=== PATIENT | male | born 1965 | race Two or more races ===

== ENCOUNTER 2024-08-02 13:21 | Emergency (ER) | payer OTHER ==
[~2024-08-02] VITALS: Ht 182.9 cm; Wt 93.4 kg
[2024-08-02] MEDS ORDERED: TAMS-3 PO (13:45)
[2024-08-02] MEDS ORDERED: FINA5TAB11 PO (13:45)
[2024-08-02 14:10] LABS: *BILIRUBIN,URIN NEGATIVE (NEGATIVE); *BLOOD, URINE NEGATIVE (NEGATIVE); *CLARITY,URINE CLEAR (CLEAR); *COLOR,URINE YELLOW (YELLOW); *KETONES,URINE NEGATIVE (NEGATIVE); *PROTEIN,URINE NEGATIVE (NEGATIVE); *UROBILINOGEN,URINE 0.2 E.U./dl (NORMAL); LEUKOCYTE ESTERASE ,URINE NEGATIVE (NEGATIVE); NITRITE, URINE NEGATIVE (NEGATIVE); PH,URINE 6.5 (5.0-8.0); UGLUCOSE NEGATIVE (NEGATIVE)
[2024-08-02 14:13] LABS: BASOPHILS % (AUTO) 0.6 % (0.0-2.0); EOSINOPHILS # (AUTO) 0.1 K/uL (0.0-0.7); EOSINOPHILS % (AUTO) 1.7 % (0.0-7.0); HEMATOCRIT 42.4 % (36.7-47.1); HEMOGLOBIN 14.3 g/dL (12.5-16.3); LYMPHOCYTES # (AUTO) 1.6 K/uL (0.8-4.8); LYMPHOCYTES % (AUTO) 33.8 % (20.5-51.5); MEAN CORPUSCULAR HEMOGLOBIN 31.4 uug (23.8-33.4); MEAN CORPUSCULAR HGB CONC 34 g/dL (32.5-36.3); MEAN CORPUSCULAR VOLUME 92.8 fL (73.0-96.2); MONOCYTES # (AUTO) 0.2 K/uL (0.1-1.30); MONOCYTES % (AUTO) 5.1 % (0.0-11.0); NEUTROPHILS # (AUTO) 2.7 K/uL (1.8-8.9); NEUTROPHILS % (AUTO) 58.8 % (38.5-71.5); PLATELET COUNT (AUTO) 189 K/uL (152-348); RED BLOOD CELL COUNT(AUTO) 4.57 MIL/uL (4.06-5.63); RED CELL DISTRIBUTION WIDTH 14.2 % (12.1-16.2); WHITE BLOOD COUNT (AUTO) 4.7 K/uL (3.6-10.2)
[2024-08-02 14:18] LABS: DIFFERENTIAL COMMENT 1
[2024-08-02 14:22] LABS: CALCIUM 9.4 mg/dL (8.5-10.1); CREATININE 0.9 mg/dL (0.6-1.3); POTASSIUM 4.6 mmol/L (3.5-5.1)
[2024-08-02 16:21] VITALS: BP 128/78; O2SAT 98
== END 2024-08-02 16:22 | disposition home or self-care (01) ==
LOC: ER 13:21
DX: N40.0 Benign prostatic hyperplasia without lower urinary tract symptoms (principal); R35.0 Frequency of micturition; Z79.899 Other long term (current) drug therapy
CPT/HCPCS: 36415; 85025; A4606; A4663

== ENCOUNTER 2024-10-31 22:13 | Emergency (ER) | payer MEDICAID ==
[~2024-10-31] VITALS: Ht 182.9 cm; Wt 95.3 kg
[2024-10-31 22:13] VITALS: O2SAT 97
[~2024-10-31 22:13] MED LIST: FINA5TAB11 PO; TAMS-3 PO
[2024-10-31 22:40] LABS: *BILIRUBIN,URIN NEGATIVE (NEGATIVE); *BLOOD, URINE NEGATIVE (NEGATIVE); *CLARITY,URINE CLEAR (CLEAR); *COLOR,URINE YELLOW (YELLOW); *KETONES,URINE NEGATIVE (NEGATIVE); *PROTEIN,URINE NEGATIVE (NEGATIVE); LEUKOCYTE ESTERASE ,URINE NEGATIVE (NEGATIVE); NITRITE, URINE NEGATIVE (NEGATIVE); PH,URINE 7.5 (5.0-8.0); UGLUCOSE NEGATIVE (NEGATIVE)
[2024-10-31 23:00] LABS: BACTERIA,URINE FEW /HPF (NONE SEEN); MUCUS,URINE FEW /LPF (0-FEW); RBC,URINE 0-3 /HPF (0-3); SQUAMOUS EPITHELIAL CELL,UR FEW /HPF (NONE SEEN); URIC ACID CRYSTALS,URINE FEW /HPF (NONE SEEN); WBC,URINE NONE SEEN /HPF (0-3); YEAST,URINE FEW /HPF (NONE SEEN)
[2024-11-01] MEDS ORDERED: LEVO500T90 PO (11:12)
[2024-11-01] MEDS ORDERED: PHEN-705 PO (11:12)
== END 2024-11-01 02:00 | disposition left against medical advice (07) ==
LOC: ER 22:13
DX: N39.0 Urinary tract infection, site not specified (principal); Z53.21 Procedure and treatment not carried out due to patient leaving prior to being seen by health care provider
CPT/HCPCS: A4606; A4663

== ENCOUNTER 2024-11-01 09:35 | Emergency (ER) | payer MEDICAID ==
[~2024-11-01] VITALS: Ht 177.8 cm; Wt 82.6 kg
[2024-11-01 10:20] LABS: *BILIRUBIN,URIN NEGATIVE (NEGATIVE); *BLOOD, URINE NEGATIVE (NEGATIVE); *CLARITY,URINE CLEAR (CLEAR); *COLOR,URINE YELLOW (YELLOW); *KETONES,URINE NEGATIVE (NEGATIVE); *PROTEIN,URINE NEGATIVE (NEGATIVE); *UROBILINOGEN,URINE 0.2 E.U./dl (NORMAL); LEUKOCYTE ESTERASE ,URINE NEGATIVE (NEGATIVE); NITRITE, URINE NEGATIVE (NEGATIVE); UGLUCOSE NEGATIVE (NEGATIVE)
[2024-11-01] MEDS ORDERED: PHEN-705 PO (11:12)
[2024-11-01] MEDS ORDERED: LEVO500T90 PO (11:12)
[2024-11-01] MEDS ORDERED: DEXAMETHASONE SOD PHOSPHATE 4 MG INJ ONE (11:16)
[2024-11-01] MEDS ORDERED: levoFLOXacin 500 MG TABLET ONE (11:16)
[2024-11-01] MEDS: DEXAMETHASONE SOD PHOSPHATE 4 MG INJ IM ONE (11:22)
[2024-11-01] MEDS: levoFLOXacin 500 MG TABLET PO ONE (11:23)
[2024-11-01 11:30] VITALS: BP 135/75; O2SAT 99
== END 2024-11-01 11:31 | disposition home or self-care (01) ==
LOC: ER 09:35
DX: R35.0 Frequency of micturition (principal); N41.0 Acute prostatitis; N40.1 Benign prostatic hyperplasia with lower urinary tract symptoms; Z79.899 Other long term (current) drug therapy
CPT/HCPCS: 99283; 81003; 96372; J1100; A4606; A4663

== ENCOUNTER 2025-01-10 13:49 | Emergency (ER) | payer MEDICAID ==
[~2025-01-10] VITALS: Ht 182.9 cm; Wt 95.3 kg
[~2025-01-10 13:49] MED LIST changes: +LEVO500T90 PO; +PHEN-705 PO
[2025-01-10 19:33] LABS: BASOPHILS % (AUTO) 0.5 % (0.0-2.0); EOSINOPHILS # (AUTO) 0.2 K/uL (0.0-0.7); EOSINOPHILS % (AUTO) 3.1 % (0.0-7.0); HEMATOCRIT 40.3 % (36.7-47.1); HEMOGLOBIN 13.8 g/dL (12.5-16.3); LYMPHOCYTES # (AUTO) 2.1 K/uL (0.8-4.8); LYMPHOCYTES % (AUTO) 33.8 % (20.5-51.5); MEAN CORPUSCULAR HEMOGLOBIN 31.7 uug (23.8-33.4); MEAN CORPUSCULAR HGB CONC 34 g/dL (32.5-36.3); MEAN CORPUSCULAR VOLUME 92.2 fL (73.0-96.2); MONOCYTES # (AUTO) 0.3 K/uL (0.1-1.30); MONOCYTES % (AUTO) 4.8 % (0.0-11.0); NEUTROPHILS # (AUTO) 3.5 K/uL (1.8-8.9); NEUTROPHILS % (AUTO) 57.8 % (38.5-71.5); PLATELET COUNT (AUTO) 202 K/uL (152-348); RED BLOOD CELL COUNT(AUTO) 4.37 MIL/uL (4.06-5.63); WHITE BLOOD COUNT (AUTO) 6.1 K/uL (3.6-10.2)
[2025-01-10 20:11] LABS: DIFFERENTIAL COMMENT 1
[2025-01-10] MEDS ORDERED: KETO10TA2 PO (20:45)
[2025-01-10] MEDS ORDERED: KETOROLAC TROMETHAMINE 30 MG INJ ONE (20:51)
[2025-01-10] MEDS: KETOROLAC TROMETHAMINE 30 MG INJ IM ONE (20:57)
[2025-01-10 21:09] VITALS: BP 118/77; TEMP 98.2; O2SAT 99
[2025-01-10 21:11] LABS: ERYTHROCYTE SEDIMENTATION RATE 10 MM/HR (0-15)
== END 2025-01-10 21:10 | disposition home or self-care (01) ==
LOC: ER 13:49
DX: M70.51 Other bursitis of knee, right knee (principal); M25.461 Effusion, right knee; Y93.9 Activity, unspecified
CPT/HCPCS: 99284; 84550; 85025; 85651; 36415; 73564; 96372; J1885; A4606; A4663